=== PATIENT | female | born 1980 | race Caucasian/White ===

== ENCOUNTER 2024-08-23 03:45 | Outpatient (CLI) | payer BC, SELFPAY | END 2024-08-23 03:46 | disposition home or self-care (01) | PROVIDERS: Visit Provider Physician Assistant Medical | DX: Z86.19 Personal history of other infectious and parasitic diseases (principal) | CPT/HCPCS: 36415; 83013 ==

== ENCOUNTER 2024-09-28 17:47 | Outpatient (REF) | payer BC, SELFPAY ==
[2024-09-30 14:58] LABS: HSV 1 DNA Result Negative (Negative); HSV 2 DNA Result Negative (Negative)
== END 2024-09-28 17:48 | disposition home or self-care (01) ==
LOC: LBN 17:47
PROVIDERS: Visit Provider Physician Assistant Medical
DX: K13.0 Diseases of lips (principal)
CPT/HCPCS: 87529

== ENCOUNTER 2024-10-02 15:19 | Outpatient (CLI) | payer BC, SELFPAY ==
[2024-10-06 19:14] LABS: Gliadin (Deamidated) Ab, IgA <10.0 U; Gliadin (Deamidated) Ab, IgG <10.0 U
== END 2024-10-02 15:20 | disposition home or self-care (01) ==
LOC: LBO 15:20
PROVIDERS: Visit Provider Internal Medicine Gastroenterology
DX: K21.9 Gastro-esophageal reflux disease without esophagitis (principal); K22.70 Barrett's esophagus without dysplasia
CPT/HCPCS: 36415; 83516

== ENCOUNTER 2024-10-19 12:32 | Outpatient (CLI) | payer BC, SELFPAY ==
--- NOTE | 2024-10-19 | DI.DEXA_ITS ---
Exam(s) XR DEXA BONE DENSITY W/WO BAUTISTA EXAM: XR DEXA BONE DENSITY W/WO BAUTISTA CLINICAL HISTORY: GERD K21.9 BARRETTS ESOPHAGUS K22.70 OUTREACH EDUCATOR MED USE Z79.899 TECHNIQUE: COMPARISON: No exams were available for comparison FINDINGS: Lateral Spine Image: Unremarkable. No compression deformities identified. Left hip: Total T-Score: 0.5 Total Z-Score: 0.7 T- and Z-scores: Within normal limits. Lumbar Spine: Total T-Score: -0.1 Total Z-Score: 0.2 T- and Z-scores: Within normal limits. IMPRESSION: No evidence of osteoporosis.
== END 2024-10-19 12:52 ==
PROVIDERS: Visit Provider Internal Medicine Gastroenterology
DX: K21.9 Gastro-esophageal reflux disease without esophagitis (principal); K22.70 Barrett's esophagus without dysplasia; Z79.899 Other long term (current) drug therapy
CPT/HCPCS: 77080

== ENCOUNTER 2024-10-26 15:32 | Emergency (ER) | payer BC, SELFPAY ==
--- NOTE | 2024-10-26 15:30 | RT.EKG_ITS ---
APPROVED REPORT Exam: Resting ECG Reason for Exam: Low Heart Rate Patient Location: E HR:54 bpm ECG Measurements Heart Rate 54 AXIS MN 128 P 52 QRSd 102 QRS 76 QT 423 T 33 QTc 402 Conclusion Sinus bradycardia, rate 54 No interval abnormalities No STEMI No priors available for comparison
[2024-10-26 15:36] VITALS: BP 162/83; PULSE 52; RESP 16; TEMP 36.6; O2SAT 98
[2024-10-26] MEDS: Lactated Ringers 1,000 ML 1000 ML IV (16:45)
[2024-10-26 16:54] LABS: Abs Immature Grans 0.01 10^3/uL (0.0-0.06); HCT 38.0 % (36.0-46.0); HGB 12.6 g/dL (11.2-15.7); Immature Grans % 0.2 %; MCH 28.1 pg (27.0-33.0); MCHC 33.2 % (32.0-36.0); MCV 85 fL (80-95); MPV 10.5 fL (8.0-11.0); Platelet Count 313 10^3/uL (130-400); RBC 4.49 10^6/uL (3.93-5.22); RDW 12.1 % (11.7-14.6); RDW-SD 37.2 fL; WBC 6.36 10^3/uL (4.4-10.8)
[2024-10-26 17:07] LABS: Magnesium 2.1 mg/dL (1.8-2.4)
--- NOTE | 2024-10-26 17:15 | ED.GENADUL_ITS ---
Discharge Plan Disposition Patient Disposition: Home Discharge Details Clinical Impression: Episodic lightheadedness, Bradycardia Primary Care Provider: None,None ED Provider: Suman Guillaume Home Meds and New Rx's Prescriptions: No Action pantoprazole 40 mg tablet,delayed release (DR/EC) 40 mg PO DAILY Patient Comments: TAKE ONE TABLET BY MOUTH EVERY DAY 30 MINUTES PRIOR TO BREAKFAST Discharge Instructions Instructions: Bradycardia, Dizziness, Adult ED Additional Instructions: Please follow-up with your primary care provider regarding your visit to the emergency department today, be sure to discuss if further testing such as a Holter monitor would be appropriate as an outpatient. Be sure to discuss results of all test performed here today to include radiology, and laboratory testing as well as results for any pending cultures. Should your symptoms worsen, or if you develop new concerning symptoms, please return immediately emergency department for further evaluation. Discharge Data Discharge Date/Time-TO BE ENTERED AT DEPARTURE: 10/26/24 19:58 HPI General Mode of arrival: ambulatory . Date/Time Provider Initiated Documentation: 10/26/24 15:41 . Limitations to Documentation: no limitations . Information obtained by: patient and old records reviewed . HPI Narrative: This is a 44-year-old female patient presenting for evaluation of dizziness and bradycardia. The patient reports that she has felt lightheaded intermittently for some time, went to her primary care doctor a few days ago and was told that her heart rate was low in the 50s. Today she has had worsening lightheadedness, that does not change based on her position. She denies vertigo, headache, states that she has some chronic vision changes and sees an eye doctor for them and has not been told she has any concerning findings. She reports that she has not sustained trauma or injury, does a fitness program and eats a varied diet without significant restrictions. She has never had syncope, chest pain, nausea or vomiting. Related Data Home Medications ?Medication ?Instructions ?Recorded ?Confirmed pantoprazole 40 mg tablet,delayed 40 mg PO DAILY 10/2610/26/24 release Allergies Allergy/AdvReac Type Severity Reaction Status Date / Time No Known Allergies Allergy Unverified 10/26/24 15:38 General Stated Complaint: Arrhythmia AIRAM: 3 Exam Narrative Exam Narrative: Gen: awake and alert, in no apparent distress. Appears well nourished. HEENT: PERRL, External ears and nose normal, mucous membranes moist. Neck: Supple, full range of motion, no observable masses Lungs: No increased work of breathing, lung sounds clear and equal bilaterally without wheezes, rhonchi, or rales. CV: Heart with regular rate and rhythm, no murmurs auscultated. Strong and symmetrical radial pulses. Abdomen: Soft, nondistended MSK: No joint swelling, no redness. Full ROM without limitation, no external traumatic findings. Skin: No rashes or lesions to visualized skin. Normal color, warm, and dry. Neuro: Symmetrical face, no focal motor deficits, no sensory deficits. Ambulates with steady gait. Psych: Appropriate for situation. Course Vital Signs Vital signs: Vital Signs Temperature 36.6 C 10/26/24 15:36 Pulse 52 L 10/26/24 15:36 Respiratory Rate 16 10/26/24 15:36 Blood Pressure 162/83 H 10/26/24 15:36 Pulse Oximetry 98 10/26/24 15:36 Temperature 36.6 C 10/26/24 15:36 Pulse 52 L 10/26/24 15:36 Respiratory Rate 16 10/26/24 15:36 Blood Pressure 162/83 H 10/26/24 15:36 Pulse Oximetry 98 10/26/24 15:36 Pain Level 0 10/26/24 15:36 Lab/Test Results Lab/Test Results: Laboratory Tests Range/Units 10/26/24 10/26/24 15:54 16:42 WBC (4.4-10.8) 10^3/uL 6.36 RBC (3.93-5.22) 10^6/uL 4.49 Hgb (11.2-15.7) g/dL 12.6 Hct (36.0-46.0) % 38.0 MCV (80-95) fL 85 MCH (27.0-33.0) pg 28.1 MCHC (32.0-36.0) % 33.2 RDW (11.7-14.6) % 12.1 Plt Count (130-400) 10^3/uL 313 MPV (8.0-11.0) fL 10.5 Immature Gran % % 0.2 Neutrophils % % 43.0 Lymphocytes % % 44.7 Monocytes % % 7.7 Eosinophils % % 3.6 Basophils % % 0.8 Nucleated RBC % (0.0-0.3) % 0.0 Absolute Neutrophils (1.2-6.7) 10^3/uL 2.74 Absolute Lymphocytes (1.2-3.4) 10^3/uL 2.84 Absolute Monocytes (0.1-0.8) 10^3/uL 0.49 Absolute Eosinophils (0.0-0.7) 10^3/uL 0.23 Absolute Basophils (0.0-0.2) 10^3/uL 0.05 Sodium Cancelled Potassium Cancelled Chloride Cancelled Carbon Dioxide Cancelled Anion Gap Cancelled BUN Cancelled Creatinine Cancelled Est GFR (CKD-EPI 2020) Cancelled Glucose Cancelled Calcium Cancelled Phosphorus (2.6-4.7) mg/dL 3.4 Magnesium (1.8-2.4) mg/dL 2.1 Total Bilirubin Cancelled AST Cancelled ALT Cancelled Alkaline Phosphatase Cancelled Total Protein Cancelled Albumin Cancelled TSH Cancelled Medical Decision Making This is a 44-year-old female patient presenting for evaluation of dizziness and bradycardia. Differential includes but is not limited to arrhythmia, metabolic derangement including electrolyte disorders, kidney injury, dehydration. Considered anemia, ACS, hypothyroidism. The patient has no neurodeficits to increase my concern for CVA or intracranial pathology such as hemorrhage, dural venous sinus thrombosis, or mass effect. We obtained an EKG which shows a sinus bradycardia with a rate of 54 but no evidence for ischemia, interval abnormality, or ectopy. I was able to review some labs performed at [facility], which include a normal TSH, CBC, CMP, and negative Sjogren's panel. I did shared decision-making conversation with the patient regarding further workup. I feel that it would be reasonable to repeat her CBC and BMP, obtain magnesium and Phos, and obtain a troponin given the dizziness that persist regardless of position. I will provide her with a liter of IV fluid. -I reviewed the patient's laboratory studies, which show no leukocytosis, anemia or thrombocytopenia. Her phosphorus and magnesium are within normal limits. Initial troponin is 5 from delta troponin given that is not undetectable per our protocol. I signed out care of this patient to the oncoming provider prior to completion of her metabolic panel as well as her delta troponin. I do not see an indication for imaging at this time. The patient did not have significant change in her symptoms with IV fluids, and I do think she would benefit from a Holter monitor in the outpatient environment. Remained hemodynamically appropriate otherwise while under my care. Rebeca Epps MD PFSH All Active Problems (Updated 10/26/24 @ 17:42 by Rebeca Epps MD) Bradycardia (Acute) Episodic lightheadedness (Acute) Social History Smoking/Tobacco Use Status: Never Smoking risk assessment performed?: Yes Housing: house Do you feel safe at home: Yes Do you feel safe in your relationship?: Yes
[2024-10-26 17:23] LABS: Troponin I 21 ng/L (<or=51)
[2024-10-26 18:36] LABS: Troponin I 18 ng/L (<or=51)
--- NOTE | 2024-10-26 19:15 | W.EDPROG ---
Date of service: 10/26/24 Time of Service: 19:15 Medical Decision Making ED course: Patient care assumed from Dr. [place] pending repeat delta troponin disposition. If delta troponin within normal limits patient will be stable for discharge to follow-up with PCP with recommendation for Holter monitor. 19: 16 On reassessment patient is resting comfortably. Results shared and reviewed with the patient and he notes that troponin is within normal limits. Patient will be stable for discharge to follow-up with primary care. Labs: Laboratory Tests Range/Units 10/26/24 10/26/24 10/26/24 15:54 16:42 18:09 WBC (4.4-10.8) 10^3/uL 6.36 RBC (3.93-5.22) 10^6/uL 4.49 Hgb (11.2-15.7) g/dL 12.6 Hct (36.0-46.0) % 38.0 MCV (80-95) fL 85 MCH (27.0-33.0) pg 28.1 MCHC (32.0-36.0) % 33.2 RDW (11.7-14.6) % 12.1 Plt Count (130-400) 10^3/uL 313 MPV (8.0-11.0) fL 10.5 Immature Gran % % 0.2 Neutrophils % % 43.0 Lymphocytes % % 44.7 Monocytes % % 7.7 Eosinophils % % 3.6 Basophils % % 0.8 Nucleated RBC % (0.0-0.3) % 0.0 Absolute Neutrophils (1.2-6.7) 10^3/uL 2.74 Absolute Lymphocytes (1.2-3.4) 10^3/uL 2.84 Absolute Monocytes (0.1-0.8) 10^3/uL 0.49 Absolute Eosinophils (0.0-0.7) 10^3/uL 0.23 Absolute Basophils (0.0-0.2) 10^3/uL 0.05 Sodium Cancelled Cancelled Potassium Cancelled Cancelled Chloride Cancelled Cancelled Carbon Dioxide Cancelled Cancelled Anion Gap Cancelled Cancelled BUN Cancelled Cancelled Creatinine Cancelled Cancelled Est GFR (CKD-EPI 2020) Cancelled Cancelled Glucose Cancelled Cancelled Calcium Cancelled Cancelled Phosphorus (2.6-4.7) mg/dL 3.4 Magnesium (1.8-2.4) mg/dL 2.1 Total Bilirubin Cancelled AST Cancelled ALT Cancelled Alkaline Phosphatase Cancelled Troponin I (<or=51) ng/L 21 18 Total Protein Cancelled Albumin Cancelled TSH Cancelled Discharge Plan Disposition Patient Disposition: Home Discharge Details Clinical Impression: Episodic lightheadedness, Bradycardia Primary Care Provider: None,None ED Provider: Suman Guillaume Home Meds and New Rx's Prescriptions: No Action pantoprazole 40 mg tablet,delayed release (DR/EC) 40 mg PO DAILY Patient Comments: TAKE ONE TABLET BY MOUTH EVERY DAY 30 MINUTES PRIOR TO BREAKFAST Discharge Instructions Instructions: Bradycardia, Dizziness, Adult ED Additional Instructions: Please follow-up with your primary care provider regarding your visit to the emergency department today, be sure to discuss if further testing such as a Holter monitor would be appropriate as an outpatient. Be sure to discuss results of all test performed here today to include radiology, and laboratory testing as well as results for any pending cultures. Should your symptoms worsen, or if you develop new concerning symptoms, please return immediately emergency department for further evaluation.
[2024-10-26 19:45] VITALS: BP 126/64; PULSE 54; RESP 16; TEMP 36.5; O2SAT 100
== END 2024-10-26 19:58 | disposition home or self-care (01) ==
PROVIDERS: Emergency Medicine; Emergency Provider General Practice
DX: R00.1 Bradycardia, unspecified (principal); R42 Dizziness and giddiness
CPT/HCPCS: 99284; 99283; 00123; 80048; 80053; 93005; 96360; 83735; 84100; 84443; 84484; 85025; 93010